=== PATIENT | male | born 1950 | race Caucasian/White ===

== ENCOUNTER 2016-12-10 15:01 | Emergency (ER) | payer OTHER ==
[~2016-12-10 15:01] MED LIST: HYDROXYZINE HCL50 MG PO; LIPITOR40 MG PO; LORTAB 5-325 M1 EACH PO; NORVASC PO; PROTONIX PO; VOLTAREN75 MG PO
== END 2016-12-10 20:38 | disposition home or self-care (01) ==
LOC: CED 15:01
DX: M54.9 Dorsalgia, unspecified (principal); G89.29 Other chronic pain; I10 Essential (primary) hypertension
CPT/HCPCS: 96372; 99283; J1885

== ENCOUNTER 2016-12-11 16:18 | Emergency (ER) | payer OTHER | END 2016-12-19 07:24 | disposition left against medical advice (07) | LOC: CED 16:18 → CFTX 16:18 → CED 17:00 | DX: Z53.21 Procedure and treatment not carried out due to patient leaving prior to being seen by health care provider (principal) ==